=== PATIENT | female | born 1995 | race African-American/Black ===

== ENCOUNTER 2017-11-23 14:55 | Emergency (ER) | payer OTHER ==
[2017-11-23 15:04] VITALS: BP 104/70; PULSE 80; TEMP 98; BMI 23.3
--- NOTE | 2017-11-23 15:04 | PDOC ---
Rapid Medical Evaluation Chief Complaint: Chest Pain Time Seen by Provider: 11/23/17 14:59 Medical Evaluation: Allergies Allergy/AdvReac Type Severity Reaction Status Date / Time No Known Allergies Allergy Verified 11/23/17 15:00 11/23/17 15:01 I have performed a brief in-person evaluation of this patient. The patient presents with a chief complaint of: chest pain, epigastric pain and what sounds to be regurgitation. Pertinent physical exam findings: well, no rebound or guarding. EKG appears WNL. I have ordered the following: UA , UCG The patient will proceed to the ED for further evaluation. 11/23/17 15:04 Discharge Disposition - Referrals Referrals: Patrick Vanegas MD [Primary Care Provider] - - Patient Instructions - Post Discharge Activity
[2017-11-23] MEDS ORDERED: SODIUM CHLORIDE 1,000 ML IV STA (15:53)
[2017-11-23] MEDS ORDERED: LIDOCAINE VISCOUS 2% ORAL/TOP 20 ML UNIT-DOSE CUP MM ONE (15:54)
[2017-11-23] MEDS ORDERED: MAG HYDROX/AL HYDROX/SIMETH 30 ML UNIT-DOSE CUP PO ONE ×2 (15:54→17:40)
[2017-11-23] MEDS ORDERED: FAMOTIDINE 20 MG/50 ML IVPB 20 MG/50 ML MG IVPB ONE ×2 (16:12→16:40)
[2017-11-23] MEDS ORDERED: LIDOCAINE VISCOUS 2% ORAL/TOP 20 ML UNIT-DOSE CUP ONE (16:13)
[2017-11-23] MEDS ORDERED: MAG HYDROX/AL HYDROX/SIMETH 30 ML UNIT-DOSE CUP ONE (16:13)
--- NOTE | 2017-11-23 16:16 | PDOC ---
History of Present Illness - General Chief Complaint: Chest Pain Stated Complaint: CHEST PAIN Time Seen by Provider: 11/23/17 14:59 - History of Present Illness Initial Comments: 11/23/17 16:13 Ms. Huggins is a 22 yo female w/ no pmh who presents complaining of a 1 day history of midline chest pain. She reports this woke her from sleep last night at approximately 2am - she took one of her mother's GERD medications and an aspirin and was able to go back to sleep with some alleviation of pain. The pain continued when she woke this morning and has continued throughout the day. Pain is made worse by swallowing and positional. She reports she started a diet of only blended foods yesterday as well. The patient denies shortness of breath, headache and dizziness. Denies fever, chills, nausea, vomit, diarrhea and constipation. Denies dysuria, frequency, urgency and hematuria. Allergies: NKDA Past History - Past Medical History Allergies/Adverse Reactions: Allergies Allergy/AdvReac Type Severity Reaction Status Date / Time No Known Allergies Allergy Verified 11/23/17 15:00 Home Medications: Ambulatory Orders Pantoprazole Sodium [Protonix] 40 mg PO DAILY #30 tablet. 11/23/17 COPD: No - Immunization History Immunization Up to Date: Yes - Suicide/Smoking/Psychosocial Hx Smoking History: Never smoked Review of Systems - Review of Systems Comments:: 11/23/17 16:15 GENERAL/CONSTITUTIONAL: No fever or chills. No weakness. HEAD, EYES, EARS, NOSE AND THROAT: No change in vision. No ear pain or discharge. No sore throat. CARDIOVASCULAR: +Midline chest pain as described. No shortness of breath RESPIRATORY: No cough, wheezing, or hemoptysis. GASTROINTESTINAL: No nausea, vomiting, diarrhea or constipation. GENITOURINARY: No dysuria, frequency, or change in urination. MUSCULOSKELETAL: No joint or muscle swelling or pain. No neck or back pain. SKIN: No rash NEUROLOGIC: No headache, vertigo, loss of consciousness, or change in strength/ sensation. ENDOCRINE: No increased thirst. No abnormal weight change HEMATOLOGIC/LYMPHATIC: No anemia, easy bleeding, or history of blood clots. ALLERGIC/IMMUNOLOGIC: No hives or skin allergy. *Physical Exam - Vital Signs Last Vital Signs Temp Pulse Resp BP Pulse Ox 98.0 F 80 18 104/70 100 11/23/17 15:00 11/23/17 15:00 11/23/17 15:00 11/23/17 15:00 11/23/17 15:00 - Physical Exam Comments: 11/23/17 16:15 GENERAL: Awake, alert, and fully oriented, in no acute distress HEAD: No signs of trauma, normocephalic, atraumatic EYES: PERRLA, EOMI, sclera anicteric, conjunctiva clear ENT: Auricles normal inspection, hearing grossly normal, nares patent, oropharynx clear without exudates. Moist mucosa NECK: Normal ROM, supple, no lymphadenopathy, JVD, or masses LUNGS: No distress, speaks full sentences, clear to auscultation bilaterally HEART: +Reproducible TTP in midline. Regular rate and rhythm, normal S1 and S2, no murmurs, rubs or gallops, peripheral pulses normal and equal bilaterally. ABDOMEN: +Epigastric tenderness. Soft, normoactive bowel sounds. No guarding, no rebound. No masses EXTREMITIES: Normal inspection, Normal range of motion, no edema. No clubbing or cyanosis. NEUROLOGICAL: Cranial nerves II through XII grossly intact. Normal speech, normal gait, no focal sensorimotor deficits SKIN: Warm, Dry, normal turgor, no rashes or lesions noted. ED Treatment Course - LABORATORY CBC & Chemistry Diagram: 11/23/17 16:12 11/23/17 16:12 - RADIOLOGY Radiology Studies Ordered: Category Date Time Status CHEST PA & LAT [RAD] Stat Radiology 11/23/17 15:54 Ordered Medical Decision Making - Medical Decision Making 11/23/17 17:43 Ms. Huggins is a 22 yo female w/ no pmh who presents for evaluation of GERD like symptoms. Patient CXR negative for acute process. Labs grossly wnl as below. Patient given Pepcid/fluids/maalox for relief of symptoms. Protonix Rx ordered for further symptomatic treatment outpatient. Discharging to home. Laboratory Results - last 24 hr 11/23/17 11/23/17 11/23/17 15:21 16:12 16:12 WBC 5.2 RBC 4.78 Hgb 12.0 Hct 37.0 MCV 77.4 L MCH 25.0 L MCHC 32.3 RDW 15.2 Plt Count 240 MPV 8.8 Absolute Neuts (auto) 2.6 Neutrophils % 49.9 Lymphocytes % 37.7 Monocytes % 10.1 Eosinophils % 1.5 Basophils % 0.8 Nucleated RBC % 0 Sodium 138 Potassium 4.2 Chloride 108 H Carbon Dioxide 24 Anion Gap 6 L BUN 10 Creatinine 0.8 Creat Clearance w eGFR > 60 Random Glucose 72 L Calcium 8.4 L Total Bilirubin 1.7 H AST 16 ALT 20 Alkaline Phosphatase 74 Creatine Kinase 109 Troponin I < 0.02 Total Protein 6.9 Albumin 3.6 Lipase 221 Urine Color Straw Urine Appearance Clear Urine pH 7.0 Ur Specific [place] 1.012 Urine Protein Negative Urine Glucose (UA) Negative Urine Ketones Negative Urine Blood Negative Urine Nitrite Negative Urine Bilirubin Negative Urine Urobilinogen Negative Ur Leukocyte Esterase Negative Urine HCG, Qual Negative 11/23/17 17:49 *DC/Admit/Observation/Transfer Diagnosis at time of Disposition: GERD (gastroesophageal reflux disease) Qualifiers: Esophagitis presence: esophagitis presence not specified Qualified Code(s): K21.9 - Gastro-esophageal reflux disease without esophagitis - Discharge Dispostion Disposition: HOME - Prescriptions Prescriptions: Pantoprazole Sodium [Protonix] 40 mg PO DAILY #30 tablet.dr - Referrals Referrals: Patrick Vanegas MD [Primary Care Provider] - - Patient Instructions Printed Discharge Instructions: DI for Atypical Chest Pain, DI for Gastroesophageal Reflux Disease (GERD) Additional Instructions: Please take proscribed medication as written for symptomatic relief. Follow-up with primary care physician for further evaluation. Return if any increase in pain, fever, chills, or other concerning symptoms. - Post Discharge Activity
--- NOTE | 2017-11-23 16:23 | PDOC ---
Attending Attestation - Resident Resident Name: Orlnado Bonner - ED Attending Attestation I have performed the following: I have examined & evaluated the patient, The case was reviewed & discussed with the resident, I agree w/resident's findings & plan - HPI HPI: 11/23/17 16:24 Healthy 22-year-old female with no severe past medical history and no toxic habits presents with chest congestion/burning for about one day. Patient was in her usual state of normal health until 2 AM when she was awoken from sleep with chest burning sensation, since then has had chest fullness with globus sensation in her lower chest and increased belching. No nausea/vomiting/diarrhea /constipation/melena, no cough, no exertional chest pain or dyspnea. Has unlimited exercise tolerance at baseline, no PE or ACS risk factors. no h/o gastritis/PUD, no excess nsaid/etoh/drugs. - Physicial Exam PE: 11/23/17 16:28 Vital signs normal, O2 sat 100% on room air Well-appearing, speaking full sentences Lungs are clear, heart is regular without murmurs Slight epigastric discomfort to palpation but no guarding or rebound, no right upper quadrant tenderness No calf tenderness or edema - Medical Decision Making 11/23/17 16:28 22-year-old female healthy with no ACS or PE risk factors presents with atypical lower chest discomfort for one day, associated with some GI complaints. Presentation seems most consistent with GERD, clinically rules out for PE using Wells and PERC criteria. EKG, chest x-ray Check labs Trial of Maalox Reassess and disposition accordingly Heart Score/ECG Review - History History: Slightly suspicious - Electrocardiogram EKG: Normal - Age Age: </= 45 - Risk Factors Based on the list above the patient has:: No risk factors known - Troponin Troponin: </= normal limit - Score Heart Score - Total: 0 #1 ECG reviewed & interpreted by me at: 15:05 General ECG Interpretation: Sinus Rhythm, Normal Rate (73), Normal Intervals ( qtc 412), No acute ischemic changes
[2017-11-23 16:32] LABS: BASO % 0.8 % (0-2.0); EOS % 1.5 % (0-4.5); LYMPH % 37.7 % (8-40); MCHC 32.3 g/dl (32.0-36.0); MEAN CELL VOLUME 77.4 fl (80-96); MEAN PLT VOLUME 8.8 fl (7.5-11.1); MONO % 10.1 % (3.8-10.2); NEUT % 49.9 % (42.8-82.8); PLATELET COUNT 240 K/MM3 (134-434); RBC 4.78 M/mm3 (3.60-5.2); RDW 15.2 % (11.6-15.6); WHITE BLOOD COUNT 5.2 K/mm3 (4.0-10.0)
[2017-11-23 16:55] LABS: ALBUMIN 3.6 g/dl (3.4-5.0); ANION GAP 6 (8-16); CALCIUM 8.4 mg/dL (8.5-10.1); CHLORIDE 108 mmol/L (98-107); CO2 24 mmol/L (21-32); CREATININE 0.8 mg/dL (0.55-1.02); GLUCOSE,RANDOM 72 mg/dL (74-106); POTASSIUM 4.2 mmol/L (3.5-5.1); SGOT/AST 16 U/L (15-37); SGPT/ALT 20 U/L (12-78); SODIUM 138 mmol/L (136-145)
[2017-11-23 17:00] LABS: ALK PHOS 74 U/L (45-117); BILIRUBIN,TOTAL 1.7 mg/dL (0.2-1.0); BLOOD UREA NITROGEN 10 mg/dL (7-18); TOT PROT 6.9 g/dl (6.4-8.2)
[2017-11-23 17:13] LABS: LIPASE 221 U/L (73-393)
[2017-11-23 17:14] LABS: URINE APPEARANCE CLEAR; URINE BILIRUBIN NEGATIVE (<2.0 mg/dL); URINE BLOOD NEGATIVE (NEGATIVE); URINE COLOR STRAW; URINE GLUCOSE (UA) NEGATIVE (NEGATIVE); URINE KETONE NEGATIVE (NEGATIVE); URINE LEUK ESTERASE NEGATIVE (NEGATIVE); URINE NITRITE NEGATIVE (NEGATIVE); URINE PROTEIN NEGATIVE (NEGATIVE); URINE UROBILINOGEN NEGATIVE mg/dL (0.2-1.0)
[2017-11-23 17:16] LABS: HCG,QUALITATIVE URINE NEGATIVE
--- NOTE | 2017-11-24 10:40 | EKG ---
Test Reason : Blood Pressure : / mmHG Vent. Rate : 073 BPM Atrial Rate : 073 BPM P-R Int : 138 ms QRS Dur : 080 ms QT Int : 374 ms P-R-T Axes : 066 032 052 degrees QTc Int : 412 ms NORMAL SINUS RHYTHM NORMAL ECG NO PREVIOUS ECGS AVAILABLE Confirmed by RIGO QUINONES, WARREN ([id number]) on 11/24/2017 10:39:48 AM Referred By: Confirmed By:WARREN SIERRA MD
== END 2017-11-23 18:16 | disposition home or self-care (01) ==
LOC: JER 14:55
DX: K21.9 Gastro-esophageal reflux disease without esophagitis (principal)
CPT/HCPCS: 36415; 71046-TC-FY; 80053; 81003; 82550; 83690; 84484; 84703; 85025; 93005; 93010; 99283-25; J7030

== ENCOUNTER 2018-03-26 15:06 | Emergency (ER) | payer OTHER ==
[2018-03-26 15:16] VITALS: BP 121/82; PULSE 75; TEMP 98.3; BMI 24.1
[2018-03-26] MEDS ORDERED: SODIUM CHLORIDE 0.9% 500 ML INFUS.BAG IV ONE (15:52)
[2018-03-26] MEDS ORDERED: ACETAMINOPHEN 1000 MG/100 ML VIAL (NON FORMULARY) IVPB ONE (15:52)
--- NOTE | 2018-03-26 16:14 | PDOC ---
History of Present Illness - General Chief Complaint: Headache Stated Complaint: MIGRAINE Time Seen by Provider: 03/26/18 15:25 - History of Present Illness Initial Comments: 22-year-old female without comorbidities presents for evaluation of headache times one year. She states she has intermittent headaches for the last year minimally relieved with Excedrin. Over the last few days she has a change in character of her headaches where they are now temporal instead of halo-like. She is photophobic and has never been worked up for headaches in the past. 03/26/18 16:11 Past History - Past Medical History Allergies/Adverse Reactions: Allergies Allergy/AdvReac Type Severity Reaction Status Date / Time No Known Allergies Allergy Verified 03/26/18 15:09 Home Medications: Ambulatory Orders Ibuprofen [Motrin -] 600 mg PO TID PRN #30 tablet 03/26/18 Asthma: Yes COPD: No Other medical history: shingles - Immunization History Immunization Up to Date: Yes - Suicide/Smoking/Psychosocial Hx Smoking History: Never smoked Hx Alcohol Use: Yes Drug/Substance Use Hx: No Review of Systems - Review of Systems Neurological: Yes: See HPI, Headache All Other Systems: Reviewed and Negative *Physical Exam - Vital Signs Last Vital Signs Temp Pulse Resp BP Pulse Ox 98.3 F 75 18 121/82 99 03/26/18 15:10 03/26/18 15:10 03/26/18 15:10 03/26/18 15:10 03/26/18 15:10 - Physical Exam Comments: HEAD: NC/AT EYES: Conjuntiva clear PERRL, EOMI Ears: Canals and TM's normal NOSE: No d/c THROAT: Moist mucous membrances, oral pharanx clear, uvula midline NECK: Supple without adenopathy CARDIAC: S1 S2 LUNGS: CTA Full and Equal breath sounds ABDOMEN: Soft NT ND MS: Full ROM in all joints without edema NEUROLOGIC: No gross sensory or motor deficits, NVID SKIN: Normal color and temperature no lesions or rashes 03/26/18 16:13 ED Treatment Course - ADDITIONAL ORDERS Additional order review: Laboratory Results 03/26/18 13:30 Urine HCG, Qual Negative - RADIOLOGY Radiology Studies Ordered: Category Date Time Status HEAD CT WITHOUT CONTRAST [CT] Stat CT Scan 03/26/18 15:52 Ordered - Medications Given in the ED: ED Medications Discontinued Medications Generic Name Dose Route Start Last Admin Trade Name Freq PRN Reason Stop Dose Admin Sodium Chloride 1,000 ml 03/26/18 15:52 03/26/18 16:01 Normal Saline - IV 03/26/18 15:53 1,000 ml ONCE ONE Administration Medical Decision Making - Medical Decision Making CAT scan, I will treat her with a bolus of saline and IV Tylenol and reevaluate her progress 03/26/18 16:13 03/26/18 16:57 CAT scan normal patient relieved after fluid bolus and tylenol *DC/Admit/Observation/Transfer Diagnosis at time of Disposition: Migraine - Discharge Dispostion Disposition: HOME Condition at time of disposition: Improved Decision to Admit order: No - Referrals Referrals: Patrick Vanegas MD [Primary Care Provider] - Santhosh Trujillo DO [Staff Physician] - - Patient Instructions Printed Discharge Instructions: DI for Migraine, Migraine -- Adult Additional Instructions: Return to the emergency room should symptoms worsen or go unresolved. Please take the anti-inflammatory as directed and if needed for pain with food treat times a day. Follow-up with neurology for further evaluation and treatment options in 1-2 days. - Post Discharge Activity
== END 2018-03-26 17:08 | disposition home or self-care (01) ==
LOC: JERFT 15:06
PROC: 3E033NZ Introduction of Analgesics, Hypnotics, Sedatives into Peripheral Vein, Percutaneous Approach (ICD-10-PCS; principal; 2018-03-26)
DX: G43.909 Migraine, unspecified, not intractable, without status migrainosus (principal)
CPT/HCPCS: 70450-TC; 84703; 96374; 99281-25; J0131

== ENCOUNTER 2018-06-16 19:09 | Emergency (ER) | payer OTHER ==
[2018-06-16 19:26] VITALS: BP 123/83; PULSE 60; TEMP 98; BMI 24.1
--- NOTE | 2018-06-16 19:41 | PDOC ---
Attending Attestation - HPI HPI: 06/16/18 21:35 The patient is a 22 year old female , currently with LMP 05/08 with no other past medical history, who presents today complaining of sharp, intermittent lower abdominal pain and cramping for about 2/5 weeks with associated thick vaginal malodorous discharge for about a week. Patient reports not going to an OBGYN for this and denies taking any pills. The patient denies any fever, chills, nausea, vomiting, chest pain, palpitations , shortness of breath, headaches, dizziness, acute vision changes. She denies vaginal bleeding. - Physicial Exam PE: 06/16/18 21:37 Constitutional: Awake, alert, oriented. No acute distress. Head: Normocephalic. Atraumatic Eyes: PERRL. EOMI. Conjunctivae are not pale. ENT: Mucous membranes are moist and intact. Posterior pharynx without exudates or erythema. Uvula midline. Neck: Supple. Full ROM. No lymphadenopathy. Cardiovascular: Regular rate. Regular rhythm. S1, S2 regular. Distal pulses are 2+ and symmetric. Pulmonary/Chest: No evidence of respiratory distress. Clear to auscultation bilaterally No wheezing, rales or rhonchi. Abdominal: (+) mild left pelvic tenderness. Soft and non-distended. No rebound , guarding or rigidity. No organomegaly. No palpable masses. Good bowel sounds. Pelvic: (+) left adnexal tenderness. No right adnexal tenderness. Os is closed, no CMT, Back: No CVA tenderness. Musculoskeletal: No edema. No cyanosis. No clubbing. Full range of motion in all extremities. Nocalf tenderness. Radial/pedal pulses are intact and 2+ bilaterally Skin: Skin is warm and dry. No petechiae. No purpura. Neurological: Alert and oriented to person, place, and time. Cranial nerves II -XII are grossly intact. Normal speech. Strength is grossly symmetric. No sensory deficits. Psychiatric: Good eye contact. Normal interaction, affect and behavior. - Medical Decision Making 06/16/18 21:35 EXAM#: TYPE/EXAM: RESULT: [id number] US/TRANSVAGINAL US PREG Transvaginal obstetrical ultrasound Clinical information: pain, The exam demonstrates a single viable intrauterine gestation at approximately 5 weeks 6 days (crown -rump length 0.3 cm). Embryonic cardiac rate 105 BPM. Small subchorionic implantation bleed. A 1.5 cm right ovarian corpus luteum cyst is seen containing intraluminal debris/blood. The left ovary appears unremarkable. No Doppler evidence of ovarian torsion, sensitivity 70%. There is no free intraperitoneal fluid within the lower pelvis. Impression: As noted above. Reported By: Marco Lanier MD 06/16/[id number] Documentation prepared by Olivia Person, acting as medical nurse for Vidya Ravi DO <Olivia Person - Last Filed: 06/16/18 21:35> - Resident Resident Name: Amita Duvall - Attending Attestation I have performed the following: I have examined & evaluated the patient, The case was reviewed & discussed with the resident, I agree w/resident's findings & plan, Exceptions are as noted - Medical Decision Making 06/16/18 19:41 I, Dr. Vidya Ravi DO, attest that this document has been prepared under my direction and personally reviewed by me in its entirety. I further attest, that it accurately reflects all work, treatment, procedures and medical decision -making performed by me. 06/16/18 21:58 a/p: 22yo female at about 6 weeks gestation with pelvic cramping -no bleeding -pt has not seen jewelry sorter yet -will send labs, type and screen, and tvus -will r/o ectopic -pt is nontoxic in appearance -will need CLASSIFICATION CASE MANAGER follow up and to start vitamins 06/16/18 21:59 ultrasound shows IUP, R ovarian cyst, and subchorionic bleeding -no vaginal bleeding discussed pelvic rest -discussed follow up with CLASSIFICATION CASE MANAGER resident discussed all findings with the patient pt is stable for d/c to home 06/16/18 22:42 o+ on type and screen <Vidya Ravi - Last Filed: 06/16/18 22:43>
[2018-06-16 19:58] LABS: BASO % 1.1 % (0-2.0); EOS % 2.5 % (0-4.5); HEMATOCRIT 35.9 % (32.4-45.2); HEMOGLOBIN 12.2 GM/dL (10.7-15.3); LYMPH % 35.3 % (8-40); MCH 26.2 pg (25.7-33.7); MEAN CELL VOLUME 76.9 fl (80-96); MEAN PLT VOLUME 8.4 fl (7.5-11.1); MONO % 9.9 % (3.8-10.2); NEUT % 51.2 % (42.8-82.8); PLATELET COUNT 261 K/MM3 (134-434); RBC 4.67 M/mm3 (3.60-5.2); RDW 14.3 % (11.6-15.6); WHITE BLOOD COUNT 6.6 K/mm3 (4.0-10.0)
[2018-06-16 20:26] LABS: URINE APPEARANCE CLEAR; URINE BILIRUBIN NEGATIVE (<2.0 mg/dL); URINE COLOR STRAW; URINE GLUCOSE (UA) NEGATIVE (NEGATIVE); URINE KETONE NEGATIVE (NEGATIVE); URINE LEUK ESTERASE TRACE (NEGATIVE); URINE NITRITE NEGATIVE (NEGATIVE); URINE PROTEIN NEGATIVE (NEGATIVE); URINE UROBILINOGEN NEGATIVE mg/dL (0.2-1.0)
[2018-06-16 20:30] LABS: EPI CELLS RARE /HPF (FEW); URINE BACTERIA RARE /hpf (NONE SEEN); URINE MUCUS RARE
[2018-06-16 20:54] LABS: ALBUMIN 3.7 g/dl (3.4-5.0); ALK PHOS 76 U/L (45-117); ANION GAP 7 MMOL/L (8-16); BILIRUBIN,TOTAL 0.6 mg/dL (0.2-1); BLOOD UREA NITROGEN 13 mg/dL (7-18); CALCIUM 8.5 mg/dL (8.5-10.1); CHLORIDE 107 mmol/L (98-107); CO2 23 mmol/L (21-32); CREATININE 0.8 mg/dL (0.55-1.3); GLUCOSE,RANDOM 82 mg/dL (74-106); SGOT/AST 12 U/L (15-37); SGPT/ALT 14 U/L (13-61); SODIUM 137 mmol/L (136-145)
--- NOTE | 2018-06-16 21:02 | PDOC ---
History of Present Illness - General Chief Complaint: Pain Stated Complaint: STOMACH PAIN/6 WKS Time Seen by Provider: 06/16/18 19:36 History Source: Patient Exam Limitations: No Limitations - History of Present Illness Initial Comments: 06/16/18 20:53 Patient is a 22 year old female , currently with LMP 05/08 who presents today complaining of 2.5 week history of a sharp, intermittent lower abdominal pain and cramping associated with a one week history of thick, dark discharge with a strong smell. Patient however denies any vaginal bleeding. Patient reports not going to an OBGYN and denies taking any pills. Patient is currently sexually active and has frequent sex. Otherwise, patient denies any fever, chills, nausea, vomiting, chest pain, palpitations, shortness of breath, headaches, dizziness, acute vision changes. PMHx: Denies PSHx: Denies Social Hx: Denies alcohol use Denies drug use Denies smoking Works as a home health care social worker Past History - Past Medical History Allergies/Adverse Reactions: Allergies Allergy/AdvReac Type Severity Reaction Status Date / Time No Known Allergies Allergy Verified 06/16/18 20:25 Home Medications: Ambulatory Orders Ibuprofen [Motrin -] 600 mg PO TID PRN #30 tablet 03/26/18 Miconazole Nitrate [Miconazole 7] 45 gm VG DAILY #1 cream.appl 06/16/18 Asthma: Yes COPD: No - Reproductive History Is Patient Now?: Yes Therapeutic (s) & number: No - Immunization History Immunization Up to Date: Yes - Suicide/Smoking/Psychosocial Hx Smoking History: Never smoked Hx Alcohol Use: Yes Drug/Substance Use Hx: No Review of Systems - Review of Systems Constitutional: No: Chills, Diaphoresis, Fever HEENTM: No: Blurred Vision, Nose Congestion, Throat Pain, Throat Swelling Respiratory: No: Cough, Orthopnea, Shortness of Breath, SOB with Exertion, SOB at Rest, Wheezing, Productive cough Cardiac (ROS): No: Chest Pain, Edema, Irregular Heart Rate ABD/GI: Yes: Nausea, Abdominal cramping. No: Abdominal Distended, Constipated, Diarrhea, Vomiting : Yes: Discharge, Frequency. No: Burning, Dysuria, Flank Pain, Hematuria Musculoskeletal: No: Back Pain, Neck Pain Integumentary: No: Bruising, Flushing Neurological: No: Numbness, Tingling, Weakness Endocrine: No: Flushing *Physical Exam - Vital Signs Last Vital Signs Temp Pulse Resp BP Pulse Ox 98 F 60 18 123/83 98 06/16/18 19:24 06/16/18 19:24 06/16/18 19:24 06/16/18 19:24 06/16/18 19:24 - Physical Exam General Appearance: Yes: Other (Awake, Alert, oriented x3, no acute distress ) HEENT: positive: EOMI, VANE, Pharynx Normal Respiratory/Chest: positive: Lungs Clear, Normal Breath Sounds. negative: Respiratory Distress, Accessory Muscle Use, Decreased Breath Sounds, Crackles, Rales, Rhonchi, Stridor, Wheezing Cardiovascular: positive: Regular Rhythm, Regular Rate, S1, S2. negative: Edema , JVD, Murmur Female Pelvic Exam: positive: adnexal tenderness (left sided ), other (Cheesy, white discharge ) Gastrointestinal/Abdominal: positive: Soft, Tenderness (upon palpation of lower abdomen ). negative: Rebound Extremity: positive: Normal Capillary Refill, Normal Inspection, Normal Range of Motion. negative: Pedal Edema, Swelling, Calf Tenderness, Erythema Neurologic: positive: office manager receptionist II-XII NML intact, Fully Oriented, Alert, Normal Mood/ Affect, Normal Response, Motor Strength 5/5 Moderate Sedation - Procedure Monitoring Vital Signs: Procedure Monitoring Vital Signs Temperature 98 F 06/16/18 19:24 Pulse Rate 60 06/16/18 19:24 Respiratory Rate 18 06/16/18 19:24 Blood Pressure 123/83 06/16/18 19:24 O2 Sat by Pulse Oximetry (%) 98 06/16/18 19:24 ED Treatment Course - LABORATORY CBC & Chemistry Diagram: 06/16/18 19:46 06/16/18 19:46 - ADDITIONAL ORDERS Additional order review: Laboratory Results 06/16/18 19:13 Urine Color Straw Urine Appearance Clear Urine pH 6.0 Ur Specific [place] 1.011 Urine Protein Negative Urine Glucose (UA) Negative Urine Ketones Negative Urine Blood Negative Urine Nitrite Negative Urine Bilirubin Negative Urine Urobilinogen Negative Ur Leukocyte Esterase Trace Urine WBC (Auto) 1 Urine RBC (Auto) None Ur Epithelial Cells Rare Urine Bacteria Rare Urine Mucus Rare 06/16/18 19:46 RBC 4.67 MCV 76.9 L MCHC 34.0 RDW 14.3 MPV 8.4 Neutrophils % 51.2 Lymphocytes % 35.3 Monocytes % 9.9 Eosinophils % 2.5 Basophils % 1.1 Medical Decision Making - Medical Decision Making 06/16/18 21:02 Patient is a 22 year old currently y female with LMP 05/08/18 who presents today for vaginal discharge associated with Lower abdominal cramping. Differential diagnosis include but not limited to Ectopic , UTI, Spontaneous . -B-HCG quant -CBC -CMP -Vaginal U/S -Pelvic exam 06/16/18 22:02 -Pelvic exam revealed White thick discharge, consistent with yeast and left adnexal tenderness -Transvaginal U/S revealed right 1.5 cm ovarian corpus luteum cyst. Small subchorionic implantation bleed. Viable IUG at 5 weeks 6 days. -Spoke to patient on the importance of pelvic rest and no lifting heavy objects , as well as no sex. -Explained to patient the importance of seeing an OBGYN immediately. Patient reports having an appointment next week Wednesday. -Recommended pills OTC -Will discharge home *DC/Admit/Observation/Transfer Diagnosis at time of Disposition: Yeast infection involving the vagina and surrounding area - Discharge Dispostion Disposition: HOME Condition at time of disposition: Stable Decision to Admit order: No - Prescriptions Prescriptions: Miconazole Nitrate [Miconazole 7] 45 gm VG DAILY #1 cream.appl - Referrals - Patient Instructions Additional Instructions: -You were seen here for abdominal pain and vaginal discharge and found to have a yeast infection. You had a vaginal U/S done, which revealed an ovarian cyst -please follow up with your OBGYN within a week -We recommend Monistat, which is found over the counter. Please pick it up from your pharmacy and follow as directed. -Please bead picker pills over the counter and start immediately. -Recommend pelvic rest, bed rest, no heavy object lifting and no sex until you follow up with your OBGYN -If symptoms worsen, please return to the emergency department. - Post Discharge Activity
== END 2018-06-16 21:59 | disposition home or self-care (01) ==
LOC: JER 19:09
DX: O26.891 Other specified pregnancy related conditions, first trimester (principal); O98.811 Other maternal infectious and parasitic diseases complicating pregnancy, first trimester; O34.81 Maternal care for other abnormalities of pelvic organs, first trimester; N83.291 Other ovarian cyst, right side; Z3A.01 Less than 8 weeks gestation of pregnancy
CPT/HCPCS: 36415; 76817-TC; 80053; 81003; 81015; 84702; 85025; 86850; 86900; 86901; 87086; 99282-25